=== PATIENT | female | born 1955 | race Caucasian/White ===

== ENCOUNTER 2025-02-07 05:47 | Day surgery (SDC) | payer MEDICARE ==
[2025-01-23 10:19] VITALS: BP 134/62
[~2025-02-07] VITALS: Ht 157.5 cm; Wt 90.9 kg
[~2025-02-07 05:47] MED LIST: BUPROPION HCL150 M2 PO; ESTRADIOL1 MG PO; HYDROCODON-ACE1 EA10 PO; LACTATED RINGER'S 1,000 ML IV SCH; LIOTHYRONINE SO5 MCG PO; LISINOPRIL10 MG PO; OXYBUTYNIN CHLOR5 M1 PO; SIMVASTATIN40 MG PO; SYNTHROID112 MCG PO
[2025-02-07 06:12] VITALS: BP 121/65
[2025-02-07] MEDS ORDERED: DEXAMETHASONE SOD PHOS 4 MG/ML VIAL ONE (06:12)
[2025-02-07] MEDS ORDERED: LIDOCAINE HCL 2% 20 ML MDV ONE (06:12)
[2025-02-07] MEDS ORDERED: Ropivacaine HCl 0.5% 30 ML VIAL ONE (06:12)
[2025-02-07] MEDS ORDERED: LIDOCAINE HCL 1% 5 ML SDV INJ ONE (07:00)
[2025-02-07] MEDS ORDERED: IBLOOD GLUCOSE TEST STRIP 1 EA TEST VI PRN ×2 (07:00→10:00)
[2025-02-07] MEDS ORDERED: CEFAZOLIN SODIUM 1 GM/10 ML SYR IV SCH (07:00)
[2025-02-07] MEDS ORDERED: LIDOCAINE HCL 2% 5 ML SDV ONE (07:04)
[2025-02-07] MEDS ORDERED: propofoL 200 MG/20 ML VIAL ONE ×4 (07:04→09:19)
[2025-02-07] MEDS ORDERED: MIDAZOLAM HCL 2 MG/2 ML VIAL ONE (07:04)
[2025-02-07] MEDS ORDERED: fentaNYL citrate 100 MCG/2 ML VIAL ONE (07:04)
--- NOTE | 2025-02-07 07:29 | NUR ---
PT NOT AVAILABLE FOR VISIT. PROVIDED PRAYER.
[2025-02-07] MEDS ORDERED: ondansetron HCL 4 MG/2 ML VIAL ONE (07:33)
[2025-02-07] MEDS ORDERED: KETOROLAC TROMETHAMINE 30 MG/ML VIAL ONE (07:33)
[2025-02-07] MEDS ORDERED: LACTATED RINGER'S 1,000 ML IV ONE (09:07)
--- NOTE | 2025-02-07 09:58 | NUR ---
02/07/25 0958 Kavya Easley 0950-PATIENT ARRIVED TO PACU ON 6L MASK RR EVEN. REACTIVE TO VERBAL STIMULI OPENING EYES. SR HR 70'S PATIENT MOVING BODY IN BED RAISING HANDS TO FACE. PATIENT ENCOURAGED TO NOT TOUCH FACE. PILLOW PLACED BENEATH HEAD. 0956-PATIENT REPORTING PAIN TO ANKLE 8" WILL MEDICATE PER EMAR. PLACED ON RA 93% RR EVEN ENCOURAGED TO TAKE DEEP BREATHES.
[2025-02-07] MEDS ORDERED: fentaNYL citrate 50 MCG/ML SDV ONE (09:59)
[2025-02-07] MEDS ORDERED: fentaNYL citrate 50 MCG/ML SDV IV PRN (10:00)
[2025-02-07] MEDS ORDERED: NALOXONE HCL 0.4 MG SYR IV PRN (10:00)
[2025-02-07] MEDS ORDERED: ondansetron HCL 4 MG/2 ML VIAL IV PRN (10:00)
--- NOTE | 2025-02-07 10:56 | EKG ---
[facility] [address] [facility] [place], [place] [address] Signed Normal sinus rhythm Normal ECG When compared with ECG of 23-APR-2020 15:53, No significant change was found Confirmed by Puneet Echavarria MD ([id number]) on 02/07/2025 10:56:27 AM Electronically Signed By: PUNEET ECHAVARRIA MD 02/07/25 1056 PATIENT NAME: MALLIKA BELL Taylor Electrocardiogram DATE OF : 53 PHYSICIAN: PUNEET ECHAVARRIA MD REPORT #: [id number] REPORT IS CONFIDENTIAL AND NOT TO BE RELEASED WITHOUT AUTHORIZATION
[2025-02-07] MEDS ORDERED: HYDROCODONE/ACETA 7.5/325 TAB PO ONE (11:00)
[2025-02-07 11:30] VITALS: BP 120/58
--- NOTE | 2025-02-07 11:33 | NUR ---
RA O2 SAT AT TIMES 90%. WILL MONITOR FOR NEXT 20 MIN. ASSISTED UP TO BSC VOIDED. RETURNED TO BED WITH ASSISTANCE. HAS BOOT L FOOT NON WEIGHT BEARING AND UNDERSTANDS THIS. ELEVATED ON PILLOW. WATER GIVEN. CALL LIGHT GIVEN AT BS.
[2025-02-07 11:55] VITALS: BP 111/53
--- NOTE | 2025-02-07 11:59 | NUR ---
HAS STAYED AT 94% ON RA SATS IF SLIGHTLY DOSES OFF GOES TO 89% ON RA. HAS UNDIAGNOSED SLEEP APNEA AND HAS BEEN TOLD THIS BEFORE. IS TO FOLLOW UP ON THIS.
--- NOTE | 2025-02-07 12:44 | NUR ---
[address] ISAAC OFFICE AND CELL NUMBER NO ANSWER ON LUNCH.
--- NOTE | 2025-02-07 12:45 | NUR ---
1079 DR ISAAC RETURNED CALL UPDATED ON SATS ON RA. INFORMED OF HER KNOWING SHE PROBALY HAS SLEEP APNEA AND AGREEING. TO WATCH HER SHE HAS NARCOTICS TO TAKE AND MAY DEPRESS RESPIRATIONS. FOLLOW UP ON SLEEP APNEA SENT TO PCP ALSO AND FOR HER TO CHECK ON THIS. DCD INSTRUCTIONS ALL EXPLAINED AND NO QUESTIONS OF EITHER ONE. DCD.
--- NOTE | 2025-02-07 12:50 | NUR ---
HAS DRANK FLUIDS DECLINED FOOD ITEMS.
--- NOTE | 2025-02-09 06:59 | OR ---
[facility] [address], [place] [address] Signed DATE OF OPERATION: 02/07/2025 SURGEON: Chele Gu DPM PREOPERATIVE DIAGNOSES: 1. Hallux valgus with bunion deformity, right foot. 2. Hammertoe, right second digit. 3. Contracture, right foot. POSTOPERATIVE DIAGNOSES: 1. Hallux valgus with bunion deformity, right foot. 2. Hammertoe, right second digit. 3. Contracture, right foot. GAS AND OIL SERVICER: Nikunj Suazo DPM. PROCEDURES: 1. Lapidus bunionectomy, right foot with Kyree type osteotomy, right hallux. 2. Hammertoe correction with proximal interphalangeal joint fusion, right second digit. 3. Tendon release, right foot. SPECIMEN TO PATHOLOGY: None. ANESTHESIA: IV general with local block, right foot. DIRECTOR OF MARKETING [employer]CE ADS: Oralia Cevallos. DESCRIPTION OF PROCEDURE: The patient was brought to the operating room and placed on the table in the supine position. Anesthesia Department administered IV sedation after which a local block was given to the right foot using a total of 13 mL 1:1 mixture, 2% lidocaine plain and 0.5% ropivacaine plain. The right leg and foot were then prepped and draped in the usual sterile manner and an Esmarch was used for hemostasis. Procedure #1: Lapidus bunionectomy, right foot. Attention was initially directed to the dorsal/medial aspect right first MTPJ where a linear longitudinal incision was made Electronically Signed By: CHELE GU DPM 02/09/25 0659 PATIENT NAME: MALLIKA BELL OPERATIVE REPORT DATE OF : 53 REPORT #: [id number] PHYSICIAN: CHELE GU DPM PCP: MARYCHUY QUILES MD REPORT IS CONFIDENTIAL AND NOT TO BE RELEASED WITHOUT AUTHORIZATION [facility] [address], [place] [address] Signed approximately 1 cm medial to the extensor hallucis longus and centered over the first MTPJ about 7 cm in length total. The incision was initially full-thickness through the dermis, then deepened through subcutaneous tissue using careful dissection and cautery as necessary for hemostasis. Once at the level of deep fascia and joint capsule the incision was deepened to bone and soft tissues reflected medially to expose the bony prominence at the medial first metatarsal head, which was then resected using power instrumentation, removing about 2-3 mm of bone. At this time, attention was directed to the first intermetatarsal space where a lateral release was performed. Dissection was then carried proximal and the incision extended proximal to the metatarsal-cuneiform joint for the fusion procedure at this site. The soft tissues reflected to expose the joint and a joint distractor then used to open the joint in preparation for joint fusion. Power and hand instrumentation was used to resect joint surfaces and prepare for the fusion. Alignment of the joint surfaces which were prepared for fusion was checked. This was pinned temporarily with K-wires and alignment checked with fluoroscopy. This was deemed adequate and plate and screws then applied to stabilize the fusion site. At this time, attention was directed to the right hallux. It was noted at this time to require an osteotomy within the proximal phalanx, as adequate correction could not be obtained without this. A wedge osteotomy was made in the base of the proximal phalanx, right hallux, removing about 3 mm of bone. This was then secured with use of a bone staple. Procedure #2 Tenotomy right foot: Due to the severe hammertoe contracture right foot, it was deemed necessary to perform an extensor tenotomy to allow all the adequate reduction of the right second digit. This was performed over the mid-distal portion of the metatarsal. The tenotomy was performed percutaneously, and appeared to provide adequate reduction of the contracture at the MTPJ. Procedure #3 Hammertoe correction with implant, right second digit: Attention directed to the dorsal PIPJ, where a transverse ellipse was performed over the PIPJ with the ellipse of skin removed. The tendon and joint capsule was exposed and this was incised transversely to open the joint and soft tissues then reflected proximally to expose the head of the proximal phalanx of the right second digit. With the head of the phalanx exposed, the power instrumentation was then used to resect the head of the proximal phalanx. Power instrumentation then also used to resect cartilage from the base of the intermediate phalanx to prepare for joint fusion. Joint implant then utilized to the Electronically Signed By: CHELE GU DPM 02/09/25 0659 PATIENT NAME: MALLIKA BELL OPERATIVE REPORT DATE OF : 53 REPORT #: [id number] PHYSICIAN: CHELE GU DPM PCP: MARYCHUY QUILES MD REPORT IS CONFIDENTIAL AND NOT TO BE RELEASED WITHOUT AUTHORIZATION [address] [address] Signed PIPJ to secure the fusion site. The surgical sites were then irrigated with copious amounts of normal saline. 4-0 Vicryl used to reapproximate the tendon and joint capsule over the right second digit PIPJ fusion site and skin then closed using 5-0 nylon suture. Surgical site for the bunionectomy, then closed using 3-0 Vicryl for capsular closure and deep soft tissues. 4-0 Vicryl used for subcutaneous closure and skin reed used for skin closure. Dressings applied consisting of Adaptic, Betadine-soaked gauze, dry gauze, Kerlix fluffs, Flexicon, and Coban for mild compression as well as to splint the position to the hallux and second digit. INTRAOPERATIVE COMPLICATIONS: None. ESTIMATED BLOOD LOSS: Less than 5 mL. JOESPH Dunham/ELIJAH /[id number] Copies: ~ Electronically Signed By: CHELE GU DPM 02/09/25 0659 PATIENT NAME: MALLIKA BELL OPERATIVE REPORT DATE OF : 53 REPORT #: [id number] PHYSICIAN: CHELE GU DPM PCP: MARYCHUY QUILES MD REPORT IS CONFIDENTIAL AND NOT TO BE RELEASED WITHOUT AUTHORIZATION
== END 2025-02-07 12:30 | disposition home or self-care (01) ==
LOC: DS 05:47 → OPS 05:47 → DS 07:30 → OPS 12:30
PROVIDERS: ATTEND Podiatrist Foot Surgery
PROC: 0QBQ0ZZ Excision of Right Toe Phalanx, Open Approach (ICD-10-PCS; principal; 2025-02-07 07:30)
DX: M21.611 Bunion of right foot (principal); M20.11 Hallux valgus (acquired), right foot; M20.41 Other hammer toe(s) (acquired), right foot; M62.471 Contracture of muscle, right ankle and foot; I10 Essential (primary) hypertension; Z72.0 Tobacco use; Z79.899 Other long term (current) drug therapy
CPT/HCPCS: 01480; 73620; 73630; 93005; 93010; A9270; C1713; C1776; C1889; J0690; J1100; J1885; J2003; J2250; J2405; J2704; J2795; J3010; J7121